=== PATIENT | male | born 2000 | race Two or more races ===

== ENCOUNTER 2019-10-09 11:18 | Emergency (ER) | payer OTHER ==
[~2019-10-09] VITALS: Ht 177.8 cm; Wt 61.2 kg
== END 2019-10-09 19:34 | disposition home or self-care (01) ==
LOC: ER 11:18
DX: R10.2 Pelvic and perineal pain (principal)

== ENCOUNTER 2020-07-25 07:24 | Emergency (ER) | payer OTHER ==
[~2020-07-25] VITALS: Ht 175.3 cm; Wt 73.9 kg
[2020-07-25] MEDS ORDERED: NORFLEX100MG PO (10:49)
[2020-07-25] MEDS ORDERED: KETO10TA2 PO (10:49)
== END 2020-07-25 13:13 | disposition home or self-care (01) ==
LOC: ER 07:24
DX: S83.8X1A Sprain of other specified parts of right knee, initial encounter (principal); X50.9XXA Other and unspecified overexertion or strenuous movements or postures, initial encounter; Y93.67 Activity, basketball; Y92.310 Basketball court as the place of occurrence of the external cause; Y99.8 Other external cause status